=== PATIENT | female | born 1960 | race African-American/Black ===

== ENCOUNTER 2016-12-10 12:51 | Emergency (ER) | payer OTHER ==
[2016-12-10 16:47] VITALS: BP 158/87
--- NOTE | 2016-12-10 17:24 | ED ---
Liz Bernal Alfonso, scribed for Drew Caruso MD on 12/10/16 at 1655 . Back Pain - HPI Summary HPI Summary: This patient is a 56 year old F presenting to [facility] accompanied by family with a chief complaint of low back pain since two days ago. The CC is described as numbness, sharp, shooting, and burning. The patient rates the pain 7/10 in severity. Symptoms aggravated by movement and lying down. Symptoms alleviated by nothing. Patient reports RLE pain, right hip pain, urinary inconstancy (2 years), and that when she has a BM the full stool comes out within two seconds ( 2 years). PMHx includes HTN and asthma. Medications reviewed. - History of Current Complaint Chief Complaint: EDBackInjuryPain Stated Complaint: BACK/RT HIP PAIN Time Seen by Provider: 12/10/16 16:38 Hx Obtained From: Patient Onset/Duration: Sudden Onset, Lasting Days - 2, Still Present Onset/Duration: Started Days Ago - 2, Still Present Timing: Constant Severity Initially: Moderate Severity Currently: Moderate Pain Intensity: 7 Pain Scale Used: 0-10 Numeric Character: Sharp, Burning Aggravating Symptom(s): Movement - lying down Alleviating Symptom(s): Nothing Associated Signs And Symptoms: Positive: Other - Patient reports RLE pain, right hip pain, urinary inconstancy (2 years), and that when she has a BM the full stool comes out within two seconds (2 years). - Allergies/Home Medications Allergies/Adverse Reactions: Allergies Allergy/AdvReac Type Severity Reaction Status Date / Time Caffeine Allergy Unknown Verified 04/23/16 11:38 Reaction Details Ibuprofen Allergy TINGLING Verified 04/23/16 11:38 TO SKIN Simvastatin AdvReac Unknown See Comment Verified 04/23/16 11:38 PMH/Surg Hx/FS Hx/Imm Hx Endocrine/Hematology History: Denies: Hx Diabetes Cardiovascular History: Reports: Hx Hypertension - ON MEDICATION FOR Denies: Hx Pacemaker/ICD Respiratory History: Reports: Hx Asthma - SLIGHT- NO INHALER, Hx Sleep Apnea - ? POSSIBLY GI History: Reports: Hx Gall Bladder Disease - s/p cholecystectomy, Hx Irritable Bowel History: Reports: Other Problems/Disorders - hx uti Denies: Hx Renal Disease Musculoskeletal History: Reports: Hx Arthritis - HANDS, Hx Back Problems - chronic back pain, Hx Bursitis - HANDS, Hx Tendonitis - HANDS Sensory History: Reports: Hx Contacts or Glasses - GLASSES Denies: Hx Hearing Aid Opthamlomology History: Reports: Hx Contacts or Glasses - GLASSES Psychiatric History: Reports: Hx Anxiety - ON MEDICATION FOR, Hx Depression - ON MEDICATION FOR Denies: Hx Panic Disorder - Cancer History Hx Chemotherapy: No Hx Radiation Therapy: No - Surgical History Surgery Procedure, Year, and Place: 2 C-SECTIONS. GALLBLADDER REMOVED. FATTY TUMOR REMOVED FROM BREAST. THUMB SURGERY Hx Anesthesia Reactions: Yes - PARANOID PRIOR TO RECEIVING PRIOR TO MASK BEING PLACED Infectious Disease History: No Infectious Disease History: Denies: Traveled Outside the [place] in Last 30 Days - Family History Known Family History: Negative: Respiratory Disease - Social History Alcohol Use: None Substance Use Type: Reports: None Substance Use Comment - Amount & Last Used: EARLY Smoking Status (MU): Former Smoker Amount Used/How Often: 1/2 PPD+ X 20 YEARS+ Have You Smoked in the Last Year: No Review of Systems Negative: Fever Positive: Other - when she has a BM the full stool comes out within two seconds (2 years). Positive: incontinence - 2 years Positive: Other - Low back pain, RLE pain, and right hip pain All Other Systems Reviewed And Are Negative: Yes Physical Exam Triage Information Reviewed: Yes Vital Signs On Initial Exam: Initial Vitals Temp Pulse Resp BP Pulse Ox 97.4 F 82 16 147/100 98 12/10/16 12:56 12/10/16 12:56 12/10/16 12:56 12/10/16 12:56 12/10/16 12:56 Vital Signs Reviewed: Yes Appearance: Positive: Well-Appearing, No Pain Distress Skin: Positive: Warm, Skin Color Reflects Adequate Perfusion, Dry Head/Face: Positive: Normal Head/Face Inspection Eyes: Positive: EOMI, REMBERTO ENT: Positive: Normal ENT inspection Neck: Positive: Supple, Nontender Respiratory/Lung Sounds: Positive: Clear to Auscultation, Breath Sounds Present Cardiovascular: Positive: RRR Abdomen Description: Positive: Nontender, Soft Bowel Sounds: Positive: Present Musculoskeletal: Positive: Strength/ROM Intact, Other - Low back and right sciatic distribution tenderness. Legs full strength. Normal reflexes. Neurological: Positive: Normal, Sensory/Motor Intact, Alert, Oriented to Person Place, Time Psychiatric: Positive: Affect/Mood Appropriate Diagnostics - Vital Signs Vital Signs Temp Pulse Resp BP Pulse Ox 12/10/16 16:41 97.8 F 86 16 158/87 100 12/10/16 15:05 98.3 F 79 16 159/91 99 12/10/16 12:56 97.4 F 82 16 147/100 98 - Laboratory Lab Statement: Any lab studies that have been ordered have been reviewed, and results considered in the medical decision making process. Back Pain Course/Dx - Course Course Of Treatment: PATIENT HAS A CHRONIC HX OF LOW BACK PAIN WITH RADICULOPTHY. SHE TELLS ME DR ZIMMER, NEUROSURGERY, HAS RECOMMENDED LOW BACK SURGERY WHICH SHE HAS DECLINED. NO LEG WEAKNESS TODAY. SHE TELLS ME SHE HAS HAD YEARS OF BOTH URINE LEAKAGE AND HER STOOLS OCCUR VERY QUICKLY SOON SHE FEELS THE NEED TO HAVE A BM. SHE AGREED SHE WILL F/U WITH HER PMD AND DR RAGLAND AND RETURN TO ED IF WORSE. - Diagnoses Provider Diagnoses: Lumbar radiculopathy, Sciatica, right side Discharge - Discharge Plan Condition: Stable Disposition: HOME Prescriptions: Carisoprodol TAB* [Soma TAB*] 350 mg PO Q6H PRN #15 tab MDD 4 PRN Reason: Pain HYDROcodone/ACETAMIN 5-325 MG* [[place] 5-325 TAB*] 1 tab PO Q4H PRN #20 tab MDD 6 PRN Reason: Pain Patient Education Materials: Sciatica (ED), Lumbar Radiculopathy (ED) Referrals: Renetta Murray MD [Primary Care Provider] - Cezar Zimmer MD [Medical Doctor] - Additional Instructions: FOLLOW UP WITH YOUR PRIMARY CARE DOCTOR AND DR ZIMMER. RETURN TO THE EMERGENCY DEPARTMENT FOR ANY WORSENING OF YOUR CONDITION; PAIN, WEAKNESS, NUMBNESS, DIFFICULTY CONTROLLING BOWEL OR BLADDER OR QUESTIONS OR CONCERNS. The documentation as recorded by the Liz neves Alfonso accurately reflects the service I personally performed and the decisions made by me, Drew Caruso MD.
== END 2016-12-10 17:48 | disposition home or self-care (01) ==
LOC: ED 12:51
DX: M54.16 Radiculopathy, lumbar region (principal); M54.31 Sciatica, right side; F41.9 Anxiety disorder, unspecified; M19.90 Unspecified osteoarthritis, unspecified site; Z87.891 Personal history of nicotine dependence; I10 Essential (primary) hypertension; J45.909 Unspecified asthma, uncomplicated
CPT/HCPCS: 99282

== ENCOUNTER 2017-05-31 13:40 | Emergency (ER) | payer OTHER ==
--- NOTE | 2017-05-31 14:26 | RAD ---
INDICATION: Right knee injury. TECHNIQUE: 4 views of the right knee were obtained. FINDINGS: The bones are in normal alignment. No joint effusion or fracture is seen. There is mild to moderate osteoarthritic change in the patellofemoral and medial compartments. IMPRESSION: NO EVIDENCE FOR FRACTURE, IF THE PATIENT'S SYMPTOMS PERSIST RECOMMEND FOLLOW-UP IMAGING.
--- NOTE | 2017-05-31 14:33 | ED ---
Lower Extremity - History of Current Complaint Chief Complaint: EDExtremityLower Stated Complaint: RIGHT KNEE PAIN Time Seen by Provider: 05/31/17 13:49 Hx Last Menstrual Period: 1 MONTH AGO Pain Intensity: 8 - Allergies/Home Medications Allergies/Adverse Reactions: Allergies Allergy/AdvReac Type Severity Reaction Status Date / Time cyclobenzaprine Allergy Palpitation Verified 05/31/17 15:09 [From Flexeril] s ibuprofen Allergy Tingling Verified 05/31/17 15:09 simvastatin Allergy Facial Verified 05/31/17 15:09 Redness/Flushing caffeine AdvReac Anxiety Verified 05/31/17 15:09 PMH/Surg Hx/FS Hx/Imm Hx Endocrine/Hematology History: Denies: Hx Diabetes Cardiovascular History: Reports: Hx Hypertension - ON MEDICATION FOR Denies: Hx Pacemaker/ICD Respiratory History: Reports: Hx Asthma - SLIGHT- NO INHALER, Hx Sleep Apnea - ? POSSIBLY GI History: Reports: Hx Gall Bladder Disease - s/p cholecystectomy, Hx Irritable Bowel History: Reports: Other Problems/Disorders - hx uti Denies: Hx Renal Disease Musculoskeletal History: Reports: Hx Arthritis - HANDS, Hx Back Problems - chronic back pain, Hx Bursitis - HANDS, Hx Tendonitis - HANDS Sensory History: Reports: Hx Contacts or Glasses - GLASSES Denies: Hx Hearing Aid Opthamlomology History: Reports: Hx Contacts or Glasses - GLASSES Psychiatric History: Reports: Hx Anxiety - ON MEDICATION FOR, Hx Depression - ON MEDICATION FOR, Hx Panic Disorder - PANIC ATTACKS - Cancer History Hx Chemotherapy: No Hx Radiation Therapy: No - Surgical History Surgery Procedure, Year, and Place: 2 C-SECTIONS. GALLBLADDER REMOVED. FATTY TUMOR REMOVED FROM BREAST. THUMB SURGERY Hx Anesthesia Reactions: Yes - PARANOID PRIOR TO RECEIVING PRIOR TO MASK BEING PLACED Infectious Disease History: No Infectious Disease History: Denies: Traveled Outside the [place] in Last 30 Days - Family History Known Family History: Negative: Respiratory Disease - Social History Alcohol Use: None Substance Use Type: Reports: None Substance Use Comment - Amount & Last Used: EARLY Smoking Status (MU): Former Smoker Amount Used/How Often: 1/2 PPD+ X 20 YEARS+ Have You Smoked in the Last Year: No Physical Exam Vital Signs On Initial Exam: Initial Vitals Temp Pulse Resp BP Pulse Ox 98.1 F 97 20 151/74 98 05/31/17 13:44 05/31/17 13:44 05/31/17 13:44 05/31/17 13:44 05/31/17 13:44 Diagnostics - Vital Signs Vital Signs Temp Pulse Resp BP Pulse Ox 05/31/17 13:44 98.1 F 97 20 151/74 98 - Laboratory Lab Statement: Any lab studies that have been ordered have been reviewed, and results considered in the medical decision making process. - Radiology right knee Xray Interpretation: No Acute Changes - The bones are in normal alignment. No joint effusion or fracture is seen. There is mild to moderate osteoarthritic change in the patellofemoral and medial compartments. IMPRESSION: NO EVIDENCE FOR FRACTURE, IF THE PATIENT'S SYMPTOMS PERSIST RECOMMEND FOLLOW-UP IMAGING. Radiology Interpretation Completed By: Radiologist Lower Extremity Course/Dx - Diagnoses Provider Diagnoses: Right knee sprain Discharge - Discharge Plan Condition: Stable Disposition: HOME Prescriptions: HYDROcodone/ACETAMIN 5-325 MG* [[place] 5-325 TAB*] 1 tab PO Q6H PRN #14 tab MDD 2 PRN Reason: Pain tiZANidine TAB* [Zanaflex TAB*] 2 mg PO BEDTIME PRN #7 tab PRN Reason: Spasms Patient Education Materials: Knee Sprain (ED), Knee Immobilizer (ED) Referrals: Renetta Murray MD [Primary Care Provider] - Additional Instructions: Take prescribed medication as directed. Sent to [facility]. Muscle relaxer at bedtime. Rest, Ice, Elevate and wear knee immobilizer. Use can for extra support when walking. Avoid physical activity. Any new or worsening symptoms please seek medical attention. Follow up with Ortho, call to make an appointment. Follow up with PCP.
[2017-05-31] MEDS ORDERED: HYDROcodone/ACETAMIN 5-325 MG* 1 TAB PO ONE (15:45)
[2017-05-31 16:01] VITALS: BP 164/97
== END 2017-05-31 16:00 | disposition home or self-care (01) ==
LOC: ED 13:40
DX: S83.91XA Sprain of unspecified site of right knee, initial encounter (principal); X58.XXXA Exposure to other specified factors, initial encounter; Y93.9 Activity, unspecified; Y92.9 Unspecified place or not applicable; I10 Essential (primary) hypertension; J45.909 Unspecified asthma, uncomplicated; F41.9 Anxiety disorder, unspecified; F32.9 Major depressive disorder, single episode, unspecified; Z88.6 Allergy status to analgesic agent; Z88.8 Allergy status to other drugs, medicaments and biological substances; Z87.891 Personal history of nicotine dependence
CPT/HCPCS: 99282

== ENCOUNTER 2017-08-13 07:30 | Inpatient (IN) | payer OTHER ==
--- NOTE | 2017-08-27 03:50 | HP ---
HISTORY AND PHYSICAL: DATE OF ADMISSION/SURGERY: 09/01/17 PROVIDER: Belkys Matthesw MD * (DICTATED BY KATYA CARTER) HISTORY OF PRESENT ILLNESS: Ms. Lee is a 57-year-old female who has bilateral knee pain due to advanced osteoarthritis. Her right knee is giving her 7-8/10 pain along the joint line. She is unable to ambulate more than a block without difficulty. She has chest pain with climbing stairs. She has failed conservative management with antiinflammatories, pain medication, physical therapy, and intra- articular injections. She is scheduled for a right total knee arthroplasty on 09/01/17. PAST MEDICAL HISTORY: 1. Carpal tunnel syndrome. 2. Atopic dermatitis. 3. Sinusitis. 4. Generalized anxiety disorder. 5. Osteoarthritis. 6. Morbid obesity. 7. Hyperlipidemia. 8. Cervical spondylosis. 9. Lumbar disk disease. 10. Lumbar radiculopathy. 11. Ovarian cyst. PAST SURGICAL HISTORY: 1. Cholecystectomy. 2. x2. 3. Removal of bone from thumb of left wrist. MEDICATIONS: 1. Fenofibrate 160 mg 1 by mouth every day. 2. Ativan 0.5 mg. 3. Oxycodone/acetaminophen 7.5/325. 4. Amlodipine besylate 5 mg 1 by mouth every day. ALLERGIES: 1. NAPROXEN causes itching. 2. CAFFEINE causes palpitations. 3. SIMVASTATIN causes muscle cramps. 4. TRAMADOL unknown reaction. 5. METHOCARBAMOL hives. 6. IBUPROFEN itching. FAMILY HISTORY: Negative. SOCIAL HISTORY: The patient is currently disabled. She is a former smoker, rare alcohol use. Normally ambulates with a cane. REVIEW OF SYSTEMS: General: The patient denies any fever, chills or night sweats. No known anesthesia problems. HEENT: The patient denies any headaches , lightheadedness or syncopal episodes. Cardiothoracic: The patient denies any chest pain, heart palpitations or edema. Pulmonary: The patient denies any shortness of breath with exertion, chronic cough, or COPD. GI: The patient denies any nausea, vomiting, diarrhea or constipation. : The patient denies any nocturia, urinary frequency or urgency. MSK: The patient admits to bilateral knee pain. The patient admits to chronic back pain both cervical and lumbar. Neuro: The patient denies any paresthesias or numbness. Integument: The patient denies any abrasions, lesions, rashes or open sores. PHYSICAL EXAMINATION GENERAL: The patient is alert and oriented x3. Appropriate mood and affect. Appropriate dress and hygiene. HEENT: Normocephalic and atraumatic. Hearing and vision are grossly intact. PULMONARY: Lungs are clear to auscultation bilaterally with no wheezes, rales or rhonchi. CARDIO: Regular rate and rhythm. Normal S1 and S2. No appreciable S3 or S4. No murmurs, rubs or gallops. MSK: Right lower extremity. The patient's skin is intact. There are no abrasions or open wounds over the knee. Range of motion of the knee is 0 to 110 degrees of flexion. She has severe pain with flexion. She has positive medial joint line tenderness to palpation and posterior medial joint line tenderness to palpation. She has negative lateral joint line tenderness to palpation. Negative anterior and posterior, negative varus and valgus stress testing. No palpable masses or lymph nodes distally. She is neurovascularly intact. ASSESSMENT/PLAN: Ms. Lee is a 57-year-old female scheduled for upcoming right total knee arthroplasty on 09/01/17. Informed consent was obtained from the patient today. She understands the risks of surgery include but are not limited to bleeding, infection, damage to nearby structures, continued pain, need for further surgery, intraoperative fracture, nerve palsy, hardware failure or loosening, knee stiffness, loss of motion, stroke, heart attack, blood clot and/or . She wishes to proceed. She will follow up 10 to 14 days postop for followup and suture removal. KATYA CARTER [id number]/[facility] #: [id number] LITTLE
[2017-08-31] MEDS ORDERED: Buffered Lidocaine 0.9% SYRIN* 5 ML/SYR SYRINGE INTRADERM ONE (15:01)
[2017-09-01] MEDS ORDERED: Levalbuterol 0.63MG/3ML NEB* UNIT OF USE INH ONE ×2 (06:00→10:19)
[2017-09-01] MEDS ORDERED: Famotidine IV* 10 MG/ML 2 ML (20 mg) IV ONE (06:00)
[2017-09-01] MEDS ORDERED: Acetaminophen IV 1GM/100ML * 1,000 MG/100 ML VIAL IVPB ONE (06:00)
[2017-09-01] MEDS ORDERED: Dexamethasone IV* 4 MG/ML 1 ML (4 MG) IV SLOW PU ONE (06:00)
[2017-09-01] MEDS ORDERED: Gabapentin CAP(*) 300 MG PO ONE (06:00)
[2017-09-01] MEDS ORDERED: Bupivacaine 0.5% PF 10 ML VIAL INJ ONE ×2 (07:25→10:52)
[2017-09-01] MEDS ORDERED: Gabapentin CAP(*) 300 MG ONE (10:12)
[2017-09-01] MEDS ORDERED: Famotidine IV* 10 MG/ML 2 ML (20 mg) ONE (10:12)
[2017-09-01] MEDS ORDERED: ceFAZolin 1 GM in Dextrose (*) 1 GM/50 ML BAG IVPB ONE (10:12)
[2017-09-01] MEDS ORDERED: ceFAZolin 2 GM PREMIX (*) 2 GM/50 ML BAG IVPB ONE (10:12)
[2017-09-01] MEDS ORDERED: Dexamethasone IV* 4 MG/ML 1 ML (4 MG) ONE (10:12)
[2017-09-01] MEDS ORDERED: Buffered Lidocaine 0.9% SYRIN* 5 ML/SYR SYRINGE ONE (10:13)
[2017-09-01] MEDS ORDERED: Acetaminophen IV 1GM/100ML * 100 ML ONE (10:19)
[2017-09-01] MEDS ORDERED: fentaNYL* 50 MCG/ML 2 ML VIAL (100 MCG VIAL) ONE ×3 (10:42→15:40)
[2017-09-01] MEDS ORDERED: Midazolam* 1 MG/ML 5 ML VIAL (5 MG) ONE ×2 (10:42→12:10)
[2017-09-01] MEDS ORDERED: Ondansetron ODT TAB* 4 MG SL PRN (10:46)
[2017-09-01] MEDS ORDERED: Propofol* 10 MG/ML 20 ML BTL IV PUSH ONE ×2 (10:52→13:40)
[2017-09-01] MEDS ORDERED: Lidocaine 2% PF * 5 ML VIAL ONE (10:52)
[2017-09-01] MEDS ORDERED: Bupivacaine 0.5% SDV PF* 30ML VIAL ONE (11:25)
[2017-09-01] MEDS ORDERED: Ondansetron ODT TAB* 4 MG ONE (11:26)
[2017-09-01] MEDS ORDERED: ROPIVACAINE 5 MG/ML 30 ML BTL (0.5%) ONE (11:28)
[2017-09-01] MEDS ORDERED: diPHENhydraMINE IV* 50 MG/ML 1 ml VIAL (BENADRYL) IV PRN (14:45)
[2017-09-01] MEDS ORDERED: Bisacodyl SUPP* 10 MG SUPP PR PRN (14:45)
[2017-09-01] MEDS ORDERED: Magnesium Hydroxide LIQ* 30 ML UDC PO PRN (14:45)
[2017-09-01] MEDS ORDERED: Ondansetron INJ* 2 MG/ML VIAL IV PRN (14:45)
[2017-09-01] MEDS ORDERED: Cyclobenzaprine TAB* 10 MG PO PRN (14:45)
[2017-09-01] MEDS ORDERED: Acetaminophen TAB* 325 MG PO PRN (14:45)
[2017-09-01] MEDS ORDERED: Polyethylene Glycol 3350* 17 GM PACKET PO PRN (14:45)
[2017-09-01] MEDS ORDERED: oxyCODONE/Acetamin 5/325 MG* TAB PO PRN (14:45)
[2017-09-01] MEDS ORDERED: Albuterol HFA INHALER* 8 gm MDI INH PRN (14:55)
[2017-09-01] MEDS ORDERED: LORazepam TAB(*) 0.5 MG PO PRN (14:55)
[2017-09-01] MEDS ORDERED: HYDROmorphone INJ* 1 MG/ML CARPUJECT SYRINGE IV PRN (15:32)
[2017-09-01] MEDS ORDERED: DiMENhydriNATE IV* 50 MG/ML VIAL IV PUSH PRN (15:32)
[2017-09-01] MEDS ORDERED: Naloxone* 0.4 MG/ML 1 ML VIAL IV PRN (15:32)
[2017-09-01] MEDS ORDERED: oxyCODONE TAB* 5 MG TAB PO PRN (15:32)
--- NOTE | 2017-09-01 15:33 | RAD ---
HISTORY: Status post right knee arthroplasty COMPARISONS: June 26, 2017 VIEWS: 3, Frontal and lateral views of the right knee FINDINGS: BONE DENSITY: Normal. BONES: The patient is status post right knee arthroplasty. There is no hardware failure or osteolysis. JOINTS: The patient is status post right knee arthroplasty. ALIGNMENT: There is no dislocation. SOFT TISSUES: Unremarkable. OTHER FINDINGS: None. IMPRESSION: STATUS POST RIGHT KNEE ARTHROPLASTY
[2017-09-01] MEDS ORDERED: oxyCODONE TAB* 5 MG TAB ONE (15:40)
[2017-09-01] MEDS: fentaNYL* 50 MCG/ML 2 ML VIAL (100 MCG VIAL) IV PRN ×2 (15:41→16:03)
[2017-09-01] MEDS ORDERED: Warfarin TAB(*) 6 MG PO ONE (17:00)
[2017-09-01] MEDS: oxyCODONE/Acetamin 5/325 MG* TAB PO PRN ×2 (17:43→22:02)
[2017-09-01] MEDS: ceFAZolin 1 GM in Dextrose (*) 1 GM/50 ML BAG IVPB SCH (20:16)
[2017-09-01] MEDS: Docusate CAP* 100 MG PO SCH (22:02)
[2017-09-01] MEDS: Magnesium Hydroxide LIQ* 30 ML UDC PO SCH (22:04)
[2017-09-01] MEDS: oxyCODONE TAB* 5 MG TAB PO PRN (23:41)
[2017-09-01] MEDS: Morphine VIAL* 4 MG/ML VIAL (1 ml vial) IV PRN (23:48)
[2017-09-02] MEDS: oxyCODONE/Acetamin 5/325 MG* TAB PO PRN ×5 (02:10→21:41)
[2017-09-02] MEDS: Morphine VIAL* 4 MG/ML VIAL (1 ml vial) IV PRN ×3 (02:12→23:25)
[2017-09-02] MEDS: oxyCODONE TAB* 5 MG TAB PO PRN ×4 (03:51→23:56)
[2017-09-02] MEDS: ceFAZolin 1 GM in Dextrose (*) 1 GM/50 ML BAG IVPB SCH ×2 (04:56→11:38)
[2017-09-02 05:37] LABS: Hematocrit 31 % (35-47); Hemoglobin 10.4 g/dl (12.0-16.0); Mean Platelet Volume 7.4 um3 (7.4-10.4); Platelet Count 367 10^3/ul (150-450)
[2017-09-02 05:41] LABS: INR 1.06 (0.77-1.02)
[2017-09-02 05:50] LABS: EGFR Non-African American 82.8 (>60)
[2017-09-02] MEDS: Docusate CAP* 100 MG PO SCH ×2 (08:08→20:25)
[2017-09-02] MEDS: amLODIPine TAB* 5 MG PO SCH (08:08)
[2017-09-02] MEDS: Vitamin THERAPEUTIC TAB PO SCH (08:08)
[2017-09-02] MEDS: Magnesium Hydroxide LIQ* 30 ML UDC PO SCH ×2 (08:09→20:25)
[2017-09-02] MEDS: CMC:Fenofibrate(NF) 160 MG TAB PO SCH (09:16)
[2017-09-02] MEDS: Enoxaparin(*) 40 MG/0.4 ML SYR SUBCUT SCH (11:38)
--- NOTE | 2017-09-02 12:15 | PN ---
Progress Note - Progress Note Date of Service: 09/02/17 SOAP: Subjective: []Patient seen OOB in chair. Her pain is currently well controlled. Denies chest pain, shortness of breath, dizziness, nausea. Objective: [] Vital Signs Temp 98.2 F 09/02/17 07:12 Pulse 91 09/02/17 07:12 Resp 18 09/02/17 11:37 BP 151/83 09/02/17 07:12 Pulse Ox 100 09/02/17 08:00 Intake & Output 09/01/17 09/02/17 09/02/17 18:59 06:59 18:59 Intake Total 3400 710 60 Output Total 1000 1500 300 Balance 2400 -790 -240 Weight 281 lb 12.8 oz Intake: IV Fluids 3200 LR 3200 Oral 200 710 60 Output: Urine 300 Fried 900 1500 Estimated Blood Loss 100 Other: Estimated Void Large # Voids 2 Laboratory Last Values Hgb 10.4 g/dl (12.0-16.0) L 09/02/17 05:16 Hct 31 % (35-47) L 09/02/17 05:16 Plt Count 367 10^3/ul (150-450) 09/02/17 05:16 MPV 7.4 um3 (7.4-10.4) 09/02/17 05:16 INR (Anticoag Therapy) 1.06 (0.77-1.02) H 09/02/17 05:16 Sodium 134 mmol/L (139-145) L 09/02/17 05:16 Potassium 4.0 mmol/L (3.5-5.0) 09/02/17 05:16 Chloride 103 mmol/L (101-111) 09/02/17 05:16 Carbon Dioxide 25 mmol/L (22-32) 09/02/17 05:16 Anion Gap 6 mmol/L (2-11) 09/02/17 05:16 BUN 9 mg/dL (6-24) 09/02/17 05:16 Creatinine 0.73 mg/dL (0.51-0.95) 09/02/17 05:16 Est GFR ( Amer) 106.4 (>60) 09/02/17 05:16 Est GFR (Non-Af Amer) 82.8 (>60) 09/02/17 05:16 BUN/Creatinine Ratio 12.3 (8-20) 09/02/17 05:16 Glucose 167 mg/dL (70-100) H 09/02/17 05:16 Calcium 8.9 mg/dL (8.6-10.3) 09/02/17 05:16 General: Well appearing, NAD, OOB in chair RLE: Dressing CDI, cryo unit in use. Thigh soft. DF/PF intact. Sensation intact distally. DP2+, capillary refill less than two seconds distally. BL LE: Calves supple and nontender without erythema, edema or palpable cords. Assessment: [] SP right total knee arthroplasty 09/01/17, Dr Matthews Plan: []WBAT PT/OT Lovenox, coumadin 6 mg See's pain management and requests minimal narcotic rx at discharge so that she can resume her chronic medications.
[2017-09-02] MEDS: Morphine TAB Extended Release (*) 30 MG TAB.ER PO SCH (14:07)
[2017-09-02] MEDS ORDERED: Warfarin TAB(*) 6 MG PO ONE (17:00)
[2017-09-03] MEDS: Morphine TAB Extended Release (*) 30 MG TAB.ER PO SCH ×2 (02:11→14:19)
[2017-09-03] MEDS: oxyCODONE/Acetamin 5/325 MG* TAB PO PRN ×3 (04:54→17:17)
--- NOTE | 2017-09-03 05:22 | OP ---
DATE OF OPERATION: 09/01/17 - ROOM #348 DATE OF : 64 SURGEON: Belkys Matthews MD DAYCARE DIRECTOR: KATYA López. Mr. Gutierrez did help throughout the procedure with preparation of the leg, wound retraction, manipulation of the knee, and wound closure. ANESTHESIOLOGIST: Lisandro Armijo MD ANESTHESIA: Spinal. PRE-OP DIAGNOSIS: Severe end-stage degenerative osteoarthritis of the right knee joint. POST-OP DIAGNOSIS: Severe end-stage degenerative osteoarthritis of the right knee joint. OPERATIVE PROCEDURE: Right total knee arthroplasty. INDICATIONS: Ms. Lee is a 57-year-old female with years of increasingly severe right knee pain. Radiographs showed advanced arthritis. She failed conservative treatment with antiinflammatories, pain medication, intraarticular injection, and physical therapy. Due to continued pain and decreased quality of life, she elected to undergo right total knee arthroplasty. Informed consent was obtained from the patient. She understood the risks of the surgery included, but were not limited to, bleeding, infection, damage to nearby structures, need for further surgery, intraoperative fracture, nerve palsy, hardware failure or loosening, knee stiffness, loss of motion, stroke, heart attack, blood clot, and . She wished to proceed. TOURNIQUET TIME: 40 minutes. COMPLICATIONS: None. ESTIMATED BLOOD LOSS: 300 cc. SPECIMEN: Bone and cartilage from the right knee joint sent to Pathology. HARDWARE USED: This is [employer] cemented total knee arthroplasty hardware. Two packages of simplex bone cement for the cement. For the femur, a right size 5 narrow Oxinium implant; this is Legion type. For the tibia, a size 3 right Chitra II tibial baseplate. For the insert, a 9-mm posterior stabilized articular insert size 3-4 and for the patella 32-mm 3-peg all poly patella with 7.5 thickness. INTRAOPERATIVE FINDINGS: Intraoperatively, the patient was noted to have severe tricompartmental arthritis with complete loss of cartilage along the weightbearing surfaces. DESCRIPTION OF PROCEDURE: Ms. Lee was identified in the preanesthesia unit. Her right lower extremity was marked as the correct operative side. Informed consent was signed and placed in the chart. The patient was taken to the operating room and placed under spinal anesthesia. A Fried catheter was placed. A tourniquet was placed on the right thigh. Right lower extremity was prepped and draped in the usual sterile fashion. Preop time-out was made to correctly identify the patient, side, and site. Appropriate perioperative antibiotics were given within 1 hour of incision. A 12-cm midline incision was made with a 10 blade and carried down to the extensor mechanism. A new 10 blade was used to make a standard medial parapatellar arthrotomy. The patella was subluxed laterally. Electrocautery was used to subperiosteally elevate the soft tissue off the superomedial tibia to the mid sagittal plane. The knee was flexed up. Anterior horn of the lateral meniscus and ACL were sharply released. A drill was used to enter the distal femur. Intramedullary distal femoral cutting guide was pinned on the distal femur. Oscillating saw was used to make the distal femoral cut. Next, the external rotation guide was pinned on the distal femur. The distal femur was sized to a size 5. Size 5 multi-cutting jig was pinned on the distal femur. Oscillating saw was used to make the 4 chamfer cuts. The PCL was completely released. The tibia was subluxed anteriorly. Extramedullary tibial cutting guide was pinned on the proximal tibia. Oscillating saw was used to make the proximal tibial cut perpendicular to the mechanical axis of the tibia. The bone was removed carefully. The knee was brought out into full extension. Medial and lateral ligaments were well balanced. The knee was in full extension. Flexion and extension gaps were well balanced. The knee was flexed up. Lamina manager cafe was placed both medially and laterally. Any remaining meniscus was carefully removed using electro-cautery. A curved osteotome was used to remove any posterior osteophytes. Tibial tray and drop taylor were placed and once again confirmed a satisfactory tibial cut. This was confirmed. A size 5 narrow right femoral trial was chosen and impacted on to the distal femur. This had excellent fit and stability. The box for the posterior stabilized implant was prepared using a reamer and box-cut osteotome. A size 3 tibial tray trial with a 9-mm insert trial was placed and the knee was taken through a range of motion. The knee had full extension to 130 degrees of flexion with satisfactory patellofemoral tracking. The patella was everted. 7 mm of patellar bone and cartilage was carefully removed using an oscillating saw. The patella was sized to a size 32. Three peg holes were drilled through the size 32 guide. A trial 32 patella with 7.5 thickness was placed and the knee was taken through range of motion. The knee had satisfactory patellofemoral tracking. All trials were removed. The tibia was subluxed anteriorly and sized to a size 3. Proximal tibia was prepared using a size 3 keel punch. All bony cut surfaces were copiously irrigated with sterile saline and dried. Final implants were cemented into place starting with the tibia, followed by the femur, and lastly the patella. A 9-mm insert trial was placed and the knee was brought out into full extension. The tourniquet was turned down at 40 minutes. The knee was copiously irrigated with sterile saline. Electrocautery was used to obtain meticulous hemostasis. Once the cement had fully cured, the insert trial was removed. Any excess cement was removed from around the capsule and hardware. Final insert chosen was a 9-mm posterior stabilizer articular insert size 3-4. This was locked into position on the tibial tray. Stability of the insert was checked and rechecked and noted to be stable. The extensor mechanism was closed using interrupted #1 Vicryls over a medium Hemovac drain. The rest of the incision was closed in a layered fashion using 0 and 2-0 Vicryls. Skin was closed using running 3-0 nylon suture. Sterile Xeroform, 4x4s, and Webril were used to cover the incision. Juan C wrap and cold pack were placed over this. The patient's anesthesia was reversed without difficulty. She was taken to the PACU in stable condition. Intended weightbearing will be weightbearing as tolerated. Intended DVT prophylaxis will be Coumadin with a Lovenox bridge. [id number]/[facility] #: [id number] LITTLE
[2017-09-03 05:48] LABS: Hematocrit 30 % (35-47); Hemoglobin 10.2 g/dl (12.0-16.0); Mean Platelet Volume 7.7 um3 (7.4-10.4); Platelet Count 347 10^3/ul (150-450)
[2017-09-03 05:53] LABS: INR 1.33 (0.77-1.02)
[2017-09-03] MEDS: CMC:Fenofibrate(NF) 160 MG TAB PO SCH (08:25)
[2017-09-03] MEDS: Vitamin THERAPEUTIC TAB PO SCH (08:25)
[2017-09-03] MEDS: Docusate CAP* 100 MG PO SCH ×2 (08:25→20:27)
[2017-09-03] MEDS: oxyCODONE TAB* 5 MG TAB PO PRN ×2 (08:25→20:27)
[2017-09-03] MEDS: amLODIPine TAB* 5 MG PO SCH (08:25)
[2017-09-03] MEDS: Magnesium Hydroxide LIQ* 30 ML UDC PO SCH ×2 (08:28→20:27)
[2017-09-03] MEDS: Enoxaparin(*) 40 MG/0.4 ML SYR SUBCUT SCH (11:49)
--- NOTE | 2017-09-03 13:25 | PN ---
Progress Note - Progress Note Date of Service: 09/03/17 SOAP: Subjective: []Patient seen OOB in chair. She feels well at this time though has had significant pain overnight. She is on long acting morphine PO and also required a morphine IV injection. Denies CP, SOB, dizziness of nausea. Feels she did well with physical therapy but she is not comfortable to go home yet due to pain and lack of 24 hour assistance at home. Objective: [] Vital Signs Temp 98.4 F 09/03/17 11:37 Pulse 94 09/03/17 11:37 Resp 20 09/03/17 11:48 BP 159/82 09/03/17 11:37 Pulse Ox 99 09/03/17 11:37 Intake & Output 09/02/17 09/03/17 09/03/17 18:59 06:59 18:59 Intake Total 535 600 260 Output Total 910 513 0694 Balance 85 -380 -740 Intake: IV Fluids 420 LR 420 IVPB 55 ABX - CEFAZOLIN 55 Oral 60 600 260 Output: Urine 454 715 9629 Other: Estimated Void Small # Voids 1 Laboratory Last Values Hgb 10.2 g/dl (12.0-16.0) L 09/03/17 05:24 Hct 30 % (35-47) L 09/03/17 05:24 Plt Count 347 10^3/ul (150-450) 09/03/17 05:24 MPV 7.7 um3 (7.4-10.4) 09/03/17 05:24 INR (Anticoag Therapy) 1.33 (0.77-1.02) H 09/03/17 05:24 Sodium 134 mmol/L (139-145) L 09/02/17 05:16 Potassium 4.0 mmol/L (3.5-5.0) 09/02/17 05:16 Chloride 103 mmol/L (101-111) 09/02/17 05:16 Carbon Dioxide 25 mmol/L (22-32) 09/02/17 05:16 Anion Gap 6 mmol/L (2-11) 09/02/17 05:16 BUN 9 mg/dL (6-24) 09/02/17 05:16 Creatinine 0.73 mg/dL (0.51-0.95) 09/02/17 05:16 Est GFR ( Amer) 106.4 (>60) 09/02/17 05:16 Est GFR (Non-Af Amer) 82.8 (>60) 09/02/17 05:16 BUN/Creatinine Ratio 12.3 (8-20) 09/02/17 05:16 Glucose 167 mg/dL (70-100) H 09/02/17 05:16 Calcium 8.9 mg/dL (8.6-10.3) 09/02/17 05:16 General: Well appearing, NAD, OOB in chair RLE: Dressing changed, incision CDI, cryo unit in use. Thigh soft. DF/PF intact. Sensation intact distally. DP2+, capillary refill less than two seconds distally. BL LE: Calves supple and nontender without erythema, edema or palpable cords. Assessment: [] SP right total knee arthroplasty 09/01/17, Dr Matthews Plan: []WBAT PT/OT Lovenox, coumadin 6 mg Plan for DC 09/04
[2017-09-03] MEDS ORDERED: Warfarin TAB(*) 6 MG PO SCH (17:00)
[2017-09-04] MEDS: oxyCODONE/Acetamin 5/325 MG* TAB PO PRN (00:29)
[2017-09-04] MEDS: Morphine TAB Extended Release (*) 30 MG TAB.ER PO SCH ×2 (01:55→14:05)
[2017-09-04] MEDS: oxyCODONE TAB* 5 MG TAB PO PRN ×2 (05:27→11:39)
[2017-09-04 05:57] LABS: Hematocrit 32 % (35-47); Hemoglobin 10.8 g/dl (12.0-16.0); Mean Platelet Volume 7.6 um3 (7.4-10.4); Platelet Count 347 10^3/ul (150-450)
[2017-09-04 06:04] LABS: INR 1.68 (0.77-1.02)
[2017-09-04] MEDS: Docusate CAP* 100 MG PO SCH (08:28)
[2017-09-04] MEDS: CMC:Fenofibrate(NF) 160 MG TAB PO SCH (08:29)
[2017-09-04] MEDS: amLODIPine TAB* 5 MG PO SCH (08:29)
[2017-09-04] MEDS: Vitamin THERAPEUTIC TAB PO SCH (08:29)
[2017-09-04] MEDS: Magnesium Hydroxide LIQ* 30 ML UDC PO SCH (08:29)
--- NOTE | 2017-09-04 12:36 | PN ---
Progress Note - Progress Note Date of Service: 09/04/17 SOAP: Subjective: 57 y/o female s/p R TKA by Dr. Matthews 09/01/2017. Patient eager for D/C, pain controlled, no complaints, no questions re: surgery. VSS, afebrile overnight. Objective: General- Well appearing, NAD, AO, sitting in chair comfortably MSK- RLE- DF/PF = b/l, PT 2+, negative homans sign, dressing removed, incision c/d/i, no drainage, erythema noted, redress, SITLT Vital Signs Temp 98.2 F 09/04/17 07:27 Pulse 89 09/04/17 07:27 Resp 18 09/04/17 11:39 BP 131/71 09/04/17 07:27 Pulse Ox 96 09/04/17 07:46 Intake & Output 09/03/17 09/04/17 09/04/17 18:59 06:59 18:59 Intake Total 260 600 720 Output Total 1775 400 200 Balance -1515 200 520 Intake: Oral 260 600 720 Output: Urine 1775 400 200 Assessment: Stable 57 y/o female s/p R TKA by Dr. Matthews 09/01/2017. Plan: - DVT prophylaxis- lovenox, coumadin. Continue coumadin as outpatient - Continue PT/ OT - Follow up with Dr. Matthews within 10-14 days - H&H - stable - post-op IV ABX - completed - Pain controlled, continue regimen - D/C to home today Acetaminophen (Tylenol Tab*) 650 mg PO Q4H PRN PRN Reason: PAIN OR TEMPERATURE Albuterol (Ventolin Hfa Inhaler*) 2 puff INH Q4H PRN PRN Reason: wheeze, cough Amlodipine Besylate (Norvasc Tab*) 5 mg PO DAILY [facility] Last Admin: 09/04/17 08:29 Dose: 5 mg Bisacodyl (Dulcolax Supp*) 10 mg KS DAILY PRN PRN Reason: constipation Diphenhydramine HCl (Benadryl Iv*) 25 mg IV Q6H PRN PRN Reason: itching Docusate Sodium (Colace Cap*) 100 mg PO BID [facility] Last Admin: 09/04/17 08:28 Dose: 100 mg Fenofibrate (Tricor(Nf)) 160 mg PO QAM [facility] Last Admin: 09/04/17 08:29 Dose: 160 mg Lactated Ringer's (Lactated Ringers 1000 Ml Bag*) 1,000 mls @ 100 mls/hr IV PER RATE [facility] Last Admin: 09/02/17 03:49 Dose: 100 mls/hr Lorazepam (Ativan Tab(*)) 0.5 mg PO DAILY PRN PRN Reason: ANXIETY Last Admin: 09/02/17 02:10 Dose: 0.5 mg Magnesium Hydroxide (Milk Of Magnesia Liq*) 30 ml PO BID [facility] Last Admin: 09/04/17 08:29 Dose: Not Given Magnesium Hydroxide (Milk Of Magnesia Liq*) 30 ml PO Q6H PRN PRN Reason: constipation Morphine Sulfate (Morphine Vial*) 2 mg IV Q2H PRN PRN Reason: PAIN Last Admin: 09/02/17 23:25 Dose: 2 mg Morphine Sulfate (Ms Contin(*)) 30 mg PO Q12H [facility] Last Admin: 09/04/17 01:55 Dose: 30 mg Multivitamins (Theragran Tab*) 1 tab PO DAILY [facility] Last Admin: 09/04/17 08:29 Dose: 1 tab Ondansetron HCl (Zofran Odt Tab*) 4 mg SL Q6H PRN PRN Reason: NAUSEA/VOMITING Last Admin: 09/01/17 11:30 Dose: 4 mg Ondansetron HCl (Zofran Inj*) 4 mg IV Q6H PRN PRN Reason: nausea Oxycodone HCl (Roxycodone Tab*) 10 mg PO Q4H PRN PRN Reason: PAIN - SEVERE Last Admin: 09/04/17 11:39 Dose: 10 mg Oxycodone/Acetaminophen (Percocet 5/325 Tab*) 2 tab PO Q4H PRN PRN Reason: PAIN Last Admin: 09/04/17 00:29 Dose: 2 tab Oxycodone/Acetaminophen (Percocet 5/325 Tab*) 1 tab PO Q4H PRN PRN Reason: PAIN Polyethylene Glycol/Electrolytes (Miralax*) 17 gm PO DAILY PRN PRN Reason: Constipation
[2017-09-04 13:09] VITALS: BP 138/70
--- NOTE | 2017-09-13 03:48 | DS ---
AMENDED REPORT NOW INCLUDES DESIGNATION COSIGNER - ESIGNED BEFORE ADJUSTMENT DISCHARGE SUMMARY: DATE OF ADMISSION/SURGERY: 09/01/17 DATE OF DISCHARGE: 09/04/17 PROVIDER: Dr. Belkys Matthews.* (DICTATED BY KATYA CARDOZO) CHIEF COMPLAINT: 1. Right knee osteoarthritis. 2. Carpal tunnel syndrome. 3. Atopic dermatitis. 4. Sinusitis. 5. Generalized anxiety disorder. 6. Generalized arthritis. 7. Morbid obesity. 8. Hyperlipidemia. 9. Cervical spondylosis. 10. Lumbar disk disease. 11. Lumbar radiculopathy. 12. History of ovarian cyst. DISCHARGE DIAGNOSES: 1. Status post right total knee arthroplasty. 2. Carpal tunnel syndrome. 3. Atopic dermatitis. 4. Sinusitis. 5. Generalized anxiety disorder. 6. Osteoarthritis, generalized. 7. Morbid obesity. 8. Hyperlipidemia. 9. Cervical spondylosis. 10. Lumbar disk disease. 11. Lumbar radiculopathy. 12. Ovarian cyst. PROCEDURE: 09/01/17, right total knee arthroplasty. BRIEF HISTORY: The patient is a 57-year-old female with a longstanding history of right knee osteoarthritis, which was unable to be managed with conservative treatments. The patient has elected to undergo a right total knee arthroplasty by Dr. Belkys Matthews, 09/01/17. HOSPITAL COURSE: On 09/01/17, the patient was admitted to [facility] where she underwent a right total knee arthroplasty, which was uncomplicated with an estimated blood loss of 300 cc. Postoperatively, the patient recovered on the surgical short stay unit. Her Fried was removed on postoperative day 2 and she was voiding on her own without difficulty. She had some difficulty with pain control while in-house. However, her pain was eventually managed with morphine extended release as well as breakthrough Percocet. Her DVT prophylaxis was managed with Lovenox and Coumadin. By postoperative day 3, she was orthopedically and medically stable for discharge to go home with home services. She will be started on her home medications and her labs and vital signs remain stable. She is able to weight bear as tolerated in the right lower extremity and worked well with physical therapy. DISCHARGE MEDICATIONS: 1. Acetaminophen 650 mg p.o. q.4 hours p.r.n., not to exceed more than 4000 International Units a day. 2. Ventolin inhaler 1 to 2 puffs every 4 hours p.r.n. for shortness of breath. 3. Norvasc 5 mg p.o. daily. 4. Colace 100 mg p.o. b.i.d. 5. Fenofibrate 160 mg p.o. q.a.m. 6. Prozac 20 mg p.o. daily. 7. Hydrocortisone 0.5% cream topically for rashes p.r.n. 8. Lorazepam 0.5 mg p.o. daily p.r.n. for anxiety. 9. Morphine extended release 30 mg p.o. q.12 hours for long-term pain management. 10. Oxycodone 5 mg 1 to 2 tablets every 4 to 6 hours as needed for pain control alternating with Percocet. 11. Percocet 5/325 one to two tablets every 4 to 6 hours as needed for pain control. 12. Multivitamin 1 tablet daily. 13. Coumadin 2 mg 1 to 3 tablets every day at 5 p.m. per physician's instruction. PHYSICAL EXAMINATION: On date of discharge, the patient is well appearing, in no acute distress, alert and oriented, sitting in chair comfortably. Vital Signs: Temperature 98.2, pulse 89, respirations 18, blood pressure 131/71 with pulse oxygenation of 96% on room air. Examination of the right lower extremity showed dorsiflexion and plantar flexion were equal bilaterally. Posterior tibial pulse 2+. Negative Homans' sign. The dressing was removed. The incision is clean, dry, and intact with no sign of drainage or erythema noted. Redressed without difficulty. Sensation was intact to light touch distal to the right knee. LABORATORY DATA ON DATE OF DISCHARGE: Include H and H of 10.8 and 32 with an INR of 1.68. DISCHARGE INSTRUCTIONS: The patient was discharged home on 09/04/17 with visiting home nurse services. She will continue to work with her physical therapy exercises as shown. She will have lab draws every Thursday and for INR check. She is instructed to take 6 mg of Coumadin on 09/04/17, 4 mg on 09/05/17, 2 mg on 09/06/17, and 2 mg on 09/07/17 with a repeat INR draw on 09/08. For her pain management, she will take morphine 30 mg extended release twice daily and alternate between oxycodone and Percocet for short-term pain control every 4 to 6 hours. She will follow up with Dr. Matthews in approximately 10 days for incision check and suture removal. She will call the office if any increased redness, drainage, or pain around the incision site and will go to the ER with any increased shortness of breath or chest pain. KATYA CARDOZO [id number]/[facility] #: [id number] [facility]ITALAnais
== END 2017-09-04 15:00 | disposition home health service (06) | DRG 302 ==
LOC: EEVIPCON 09-01 09:47 → AA 09-01 09:47 → SSU 09-01 16:54
PROVIDERS: ADMIT Orthopaedic Surgery Adult Reconstructive Orthopaedic Surgery; ATTEND Orthopaedic Surgery Adult Reconstructive Orthopaedic Surgery
PROC: 0SRC069 Replacement of Right Knee Joint with Oxidized Zirconium on Polyethylene Synthetic Substitute, Cemented, Open Approach (ICD-10-PCS; principal; 2017-09-01 12:00)
DX: M17.0 Bilateral primary osteoarthritis of knee (principal); Z68.42 Body mass index [BMI] 45.0-49.9, adult; F41.1 Generalized anxiety disorder; E11.9 Type 2 diabetes mellitus without complications; E66.01 Morbid (severe) obesity due to excess calories; M25.761 Osteophyte, right knee; M51.16 Intervertebral disc disorders with radiculopathy, lumbar region; I10 Essential (primary) hypertension; E78.2 Mixed hyperlipidemia; M48.00 Spinal stenosis, site unspecified; M50.10 Cervical disc disorder with radiculopathy, unspecified cervical region; N83.209 Unspecified ovarian cyst, unspecified side; G89.29 Other chronic pain; L20.9 Atopic dermatitis, unspecified; G56.00 Carpal tunnel syndrome, unspecified upper limb; Z87.891 Personal history of nicotine dependence; Z88.8 Allergy status to other drugs, medicaments and biological substances; Z72.89 Other problems related to lifestyle; Z82.49 Family history of ischemic heart disease and other diseases of the circulatory system; Z90.49 Acquired absence of other specified parts of digestive tract; Z91.018 Allergy to other foods; Z83.3 Family history of diabetes mellitus; Z80.9 Family history of malignant neoplasm, unspecified; Z88.5 Allergy status to narcotic agent
CPT/HCPCS: 36415; 80048; 81025; 85014; 85018; 85049; 85610; 88305; 88311; A9270-GY; C1776; J0690; J1100; J1650; J2250; J2270; J2704; J2795; J3010

== ENCOUNTER 2018-08-31 12:06 | Emergency (ER) | payer MEDICARE, MEDICAID ==
[2018-08-31 14:08] VITALS: BP 170/101
--- NOTE | 2018-08-31 14:10 | ED ---
Head Injury - HPI Summary HPI Summary: Patient is a 58-year-old female presenting to the ED after head injury. Patient states she was getting out of the cab 3 days ago when hitting her head, the top right, with immediate pain. Denies LOC. She endorsed immediately severe headache and headache to the top of the scalp. Denies confusion, weakness, memory loss. Denies any other injuries. She is very anxious on arrival. She states she "needs to get checked out." She continues to have a headache, but continues to deny any visual changes, disturbances, confusion or memory loss. No neurologic deficits. Denies any weakness, tingling, numbness in the bilateral upper or lower x-rays. Denies any neck pain. She denies any anticoagulation medications. - History Of Current Complaint Chief Complaint: EDHeadInjury Stated Complaint: FALL FOUR DAYS AGO PER PT Time Seen by Provider: 08/31/18 12:40 Hx Obtained From: Patient Hx Last Menstrual Period: 1 MONTH AGO Mechanism Of Injury: Blunt Trauma Onset/Duration: Started Days Ago Onset of Pain: Days Severity Currently: Moderate Severity Initially: Moderate Pain Intensity: 5 Pain Scale Used: 0-10 Numeric Location of Head Injury: Other: - top of head Character: Throbbing Alleviating Factor(s): Rest - Risk Factors SDH Risk Factor: Negative - Allergies/Home Medications Allergies/Adverse Reactions: Allergies Allergy/AdvReac Type Severity Reaction Status Date / Time aspirin Allergy Swelling Verified 08/31/18 12:39 cyclobenzaprine Allergy Palpitation Verified 08/31/18 12:39 [From Flexeril] s gabapentin Allergy Blurred Verified 08/31/18 12:39 Vision, dizziness ibuprofen Allergy Tingling Verified 08/31/18 12:39 methocarbamol Allergy Hives Verified 08/31/18 12:39 naproxen Allergy Itching Verified 08/31/18 12:39 simvastatin Allergy Muscle Ache Verified 08/31/18 12:39 tramadol Allergy Unknown Verified 08/31/18 12:39 Reaction Details caffeine AdvReac Anxiety Verified 08/31/18 12:39 PMH/Surg Hx/FS Hx/Imm Hx Previously Healthy: Yes Endocrine/Hematology History: Denies: Hx Diabetes Cardiovascular History: Reports: Hx Hypercholesterolemia, Hx Hypertension - on meds, Other Cardiovascular Problems/Disorders - HYPERLIPIDEMIA Denies: Hx Pacemaker/ICD Respiratory History: Reports: Hx Asthma - SLIGHT- NO INHALER, Hx Sleep Apnea - HISTORY OF Denies: Other Respiratory Problems/Disorders GI History: Reports: Hx Gall Bladder Disease - s/p cholecystectomy, Hx Gastroesophageal Reflux Disease, Hx Irritable Bowel Denies: Other GI Disorders History: Reports: Other Problems/Disorders - hx uti Denies: Hx Renal Disease Musculoskeletal History: Reports: Hx Arthritis - HANDS, Hx Back Problems, Hx Bursitis - HANDS, Hx Tendonitis - HANDS Sensory History: Reports: Hx Contacts or Glasses - GLASSES Denies: Hx Hearing Aid Opthamlomology History: Reports: Hx Contacts or Glasses - GLASSES Neurological History: Reports: Hx Migraine Denies: Other Neuro Impairments/Disorders Psychiatric History: Reports: Hx Anxiety, Hx Depression, Hx Panic Disorder - PANIC ATTACKS - Cancer History Hx Chemotherapy: No Hx Radiation Therapy: No - Surgical History Surgery Procedure, Year, and Place: 2 C-SECTIONS, 1979, . GALLBLADDER REMOVED , . FATTY TUMOR REMOVED FROM BREAST . RIGHT THUMB SURGERY. RIGHT KNEE REPLACEMENT 2016, [facility] Hx Anesthesia Reactions: Yes - N/V - Immunization History Hx Pertussis Vaccination: No Immunizations Up to Date: Yes Infectious Disease History: No Infectious Disease History: Denies: Traveled Outside the [place] in Last 30 Days - Family History Known Family History: Negative: Respiratory Disease - Social History Occupation: Unemployed Lives: With Family Alcohol Use: None Alcohol Amount: 2x per year Hx Substance Use: No Substance Use Type: Reports: None Substance Use Comment - Amount & Last Used: EARLY Smoking Status (MU): Former Smoker Amount Used/How Often: pack a day for 20 yrs Have You Smoked in the Last Year: No Review of Systems Constitutional: Negative Negative: Fever, Chills, Fatigue, Skin Diaphoresis Negative: Palpitations, Chest Pain Negative: Shortness Of Breath Genitourinary: Negative Positive: no symptoms reported, see HPI Negative: Arthralgia Skin: Negative Positive: Headache All Other Systems Reviewed And Are Negative: Yes Physical Exam Triage Information Reviewed: Yes Vital Signs On Initial Exam: Initial Vitals Temp Pulse Resp BP Pulse Ox 97.8 F 70 18 170/72 98 08/31/18 12:10 08/31/18 12:10 08/31/18 12:10 08/31/18 12:10 08/31/18 12:10 Vital Signs Reviewed: Yes Appearance: Positive: Well-Appearing, Well-Nourished Skin: Positive: Warm, Skin Color Reflects Adequate Perfusion Head/Face: Positive: Normal Head/Face Inspection Eyes: Positive: EOMI, REMBERTO, Conjunctiva Clear Neck: Positive: Supple, No Lymphadenopathy Respiratory/Lung Sounds: Positive: Clear to Auscultation, Breath Sounds Present Cardiovascular: Positive: Normal, RRR, Pulses are Symmetrical in both Upper and Lower Extremities Musculoskeletal: Positive: Normal, Strength/ROM Intact Neurological: Positive: Sensory/Motor Intact, Alert, Oriented to Person Place, Time, Normal Gait, Speech Normal Psychiatric: Positive: Normal, Affect/Mood Appropriate AVPU Assessment: Alert - [place] Coma Scale Best Eye Response: 4 - Spontaneous Best Motor Response: 6 - Obeys Commands Best Verbal Response: 5 - Oriented Coma Scale Total: 15 Diagnostics - Vital Signs Vital Signs Temp Pulse Resp BP Pulse Ox 08/31/18 12:10 97.8 F 70 18 170/72 98 - Laboratory Lab Statement: Any lab studies that have been ordered have been reviewed, and results considered in the medical decision making process. Head Injury Course/Dx Course Of Treatment: Patient's evaluated for head injury. She is neurologically intact. Patient will not allow provider to assess the head or palpate the scalp due to pain. She is endorsing headache only. Concern for a brain bleed or a concussion. Discussed treatment options with the patient and patient is requesting a CT scan as she is concerned she may have a subdural hematoma. CT brain was obtained which is negative for any intracranial abnormalities. Discussed this with patient. Offered pain control in the form of Tylenol or ibuprofen, however the patient declines as she is currently on oxycodone at home at baseline. She states she is comfortable for discharge at this time I will continue her oxycodone as needed for her pain. - Diagnoses Provider Diagnoses: Concussion, Head injury Discharge - Sign-Out/Discharge Documenting (check all that apply): Patient Departure Patient Received Moderate/Deep Sedation with Procedure: No - Discharge Plan Condition: Stable Disposition: HOME Patient Education Materials: Concussion (ED), Head Injury (ED) Referrals: Renetta Murray MD [Primary Care Provider] - Additional Instructions: Dramamine [id number] for any dizziness that persists Continue with your at home pain control as needed Ice to the area Your symptoms should begin to improve soon If symptoms continue or worsen, return to the ED - Billing Disposition and Condition Condition: STABLE Disposition: Home
== END 2018-08-31 14:06 | disposition home or self-care (01) ==
LOC: ED 12:06
DX: S06.0X0A Concussion without loss of consciousness, initial encounter (principal); W22.8XXA Striking against or struck by other objects, initial encounter; Y92.810 Car as the place of occurrence of the external cause; I10 Essential (primary) hypertension; Z88.6 Allergy status to analgesic agent; Z88.5 Allergy status to narcotic agent; Z88.8 Allergy status to other drugs, medicaments and biological substances; Z87.891 Personal history of nicotine dependence
CPT/HCPCS: 70450; 99281